=== PATIENT | male | born 1980 | race Caucasian/White ===

== ENCOUNTER → 2019-09-23 | Outpatient (CLI) | payer OTHER | LOC: ULTRA 08:23 | DX: R74.8 Abnormal levels of other serum enzymes (principal); R94.5 Abnormal results of liver function studies ==

== ENCOUNTER → 2020-07-30 | Outpatient (CLI) | payer OTHER | LOC: CAT 15:09 | PROVIDERS: ATTEND Family Medicine | DX: Z13.6 Encounter for screening for cardiovascular disorders (principal); I25.10 Atherosclerotic heart disease of native coronary artery without angina pectoris; E78.00 Pure hypercholesterolemia, unspecified ==